=== PATIENT | female | born 1990 | race Caucasian/White ===

== ENCOUNTER 2017-03-29 17:27 | Outpatient (CLI) | payer OTHER ==
[~2017-03-29 17:27] MED LIST: DOLOGEN CAPLET1 EACH PO; FOLIC ACID1 MG; PROGESTERONE100 MG
[2017-03-29] MEDS ORDERED: PRENATAL TABLE1 EAC1 PO (18:17)
== END 2017-03-30 17:03 | disposition home or self-care (01) ==
LOC: OBS/DEL 17:27
DX: O23.42 Unspecified infection of urinary tract in pregnancy, second trimester (principal)

== ENCOUNTER 2017-08-01 17:30 | Outpatient (CLI) | payer OTHER ==
[~2017-08-01 17:30] MED LIST changes: +PRENATAL TABLE1 EAC1 PO
== END 2017-08-02 12:16 | disposition home or self-care (01) ==
LOC: OBS/DEL 17:30
DX: O60.03 Preterm labor without delivery, third trimester (principal); Z34.03 Encounter for supervision of normal first pregnancy, third trimester

== ENCOUNTER 2017-08-29 06:11 | Inpatient (IN) | payer OTHER ==
[~2017-08-29] VITALS: Ht 165.1 cm; Wt 3.6 kg
[2017-09-01] MEDS ORDERED: NAPR500T14 PO (12:45)
== END 2017-09-01 14:44 | DRG 766 ==
LOC: OB/GYN 06:11 → LDR 06:11 → OB/GYN 14:42 → O/R 21:48 → OB/GYN 23:53
PROVIDERS: Obstetrics & Gynecology
PROC: 10907ZC Drainage of Amniotic Fluid, Therapeutic from Products of Conception, Via Natural or Artificial Opening (ICD-10-PCS; 2017-08-29)
PROC: 3E0P7VZ Introduction of Hormone into Female Reproductive, Via Natural or Artificial Opening (ICD-10-PCS; 2017-08-29)
PROC: 3E033VJ Introduction of Other Hormone into Peripheral Vein, Percutaneous Approach (ICD-10-PCS; 2017-08-29)
PROC: 4A033R1 Measurement of Arterial Saturation, Peripheral, Percutaneous Approach (ICD-10-PCS; 2017-08-29)
PROC: 4A1HXCZ Monitoring of Products of Conception, Cardiac Rate, External Approach (ICD-10-PCS; 2017-08-29)
PROC: 10D00Z1 Extraction of Products of Conception, Low, Open Approach (ICD-10-PCS; principal; 2017-08-29 18:00)
DX: O69.81X0 Labor and delivery complicated by cord around neck, without compression, not applicable or unspecified (principal); O61.0 Failed medical induction of labor; O99.824 Streptococcus B carrier state complicating childbirth; Z3A.40 40 weeks gestation of pregnancy; Z37.0 Single live birth

== ENCOUNTER → 2017-09-11 | Emergency (ER) | payer OTHER ==
[~2017-09-11] VITALS: Ht 165.1 cm; Wt 90.7 kg
[~2017-09-11] MED LIST changes: +NAPR500T14 PO
== END | disposition home or self-care (01) ==
LOC: ER 18:46
DX: O86.0 Infection of obstetric surgical wound (principal)